=== PATIENT | male | born 1960 | race Caucasian/White ===

== ENCOUNTER 2024-09-17 23:40 | Emergency (ER) | payer MEDICAID, SELFPAY ==
[2024-09-17 23:42] VITALS: BP 137/89; PULSE 99; RESP 20; TEMP 36.8; O2SAT 96; BMI 20.5
[2024-09-18 00:01] VITALS: BP 159/74; PULSE 69; O2SAT 100
--- NOTE | 2024-09-18 00:12 | CT_ITS ---
PROCEDURE INFORMATION: Exam: CT Head Without Contrast Exam date and time: 09/18/2024 12:35 AM Age: 64 years old Clinical indication: Injury or trauma; Fall; Additional info: Fall struck head TECHNIQUE: Imaging protocol: Computed tomography of the head without contrast. Radiation optimization: All CT scans at this facility use at least one of these dose optimization techniques: automated exposure control; mA and/or kV adjustment per patient size (includes targeted exams where dose is matched to clinical indication); or iterative reconstruction. COMPARISON: No relevant prior studies available. FINDINGS: Brain: There is age related atrophy. No hemorrhage. Unremarkable white matter. No mass effect. Cerebral ventricles: No ventriculomegaly. Paranasal sinuses: There is patchy opacification of the sinuses. Mastoid air cells: Visualized mastoid air cells are well aerated. Auditory system: Cerumen is noted within the left external auditory canal. Orbital cavities: The orbital contents are symmetric and normal. Bones: Unremarkable. No acute fracture. Soft tissues: There is a left frontal scalp hematoma with subcutaneous air present consistent with a laceration. There is a right parietal scalp hematoma present. IMPRESSION: 1. No acute intracranial abnormality. 2. Left frontal and right parietal scalp hematomas with a laceration in the left frontal region.
--- NOTE | 2024-09-18 00:12 | PC.NURSE ---
Called [facility] center, speaking with Dr.Daniel Sakina MD at this time.
--- NOTE | 2024-09-18 00:17 | CT_ITS ---
PROCEDURE INFORMATION: Exam: CT Cervical Spine Without Contrast Exam date and time: 09/18/2024 12:37 AM Age: 64 years old Clinical indication: Injury or trauma; Fall; Additional info: Fall ETOH TECHNIQUE: Imaging protocol: Computed tomography of the cervical spine without contrast. Radiation optimization: All CT scans at this facility use at least one of these dose optimization techniques: automated exposure control; mA and/or kV adjustment per patient size (includes targeted exams where dose is matched to clinical indication); or iterative reconstruction. COMPARISON: CT HEAD/BRAIN WO CON 09/18/2024 12:35 AM FINDINGS: Bones: No acute fracture. Normal alignment. There is severe degenerative disc disease at C5-C6 and C6-C7. [id number] degenerative disc disease noted at C2-C3 and C3-C4. Diffuse significant facet arthropathy is noted. No significant disc bulge or herniation. There is a least mild central canal stenosis at C5-C6 and C6-C7 secondary to posterior disc osteophyte formation. Prominent bony foraminal stenosis is noted bilaterally at C4-C5, C5-C6 and C6-C7 and on the right at T1-2 and T2-3. Lungs: Lung apices are normal. Vasculature: There is significant calcific atherosclerotic disease of the carotid bifurcation bilaterally. Soft tissues: Unremarkable. IMPRESSION: 1. No acute cervical spine fracture. 2. Diffuse spondylosis as noted. 3. Significant calcification of the carotid bifurcation bilaterally. Correlation with nonemergent carotid duplex is recommended.
[2024-09-18] MEDS: ONDANSETRON 4MG/2ML VIAL 4 MG IV (00:22)
[2024-09-18] MEDS: LACTATED RINGERS 1000ML 1,000 ML 999 ML IV (00:22)
[2024-09-18 00:31] VITALS: BP 174/154; PULSE 69; O2SAT 97
--- NOTE | 2024-09-18 00:33 | PC.NURSE ---
Rounding done on patient; no needs at this time. Face cleaned up
[2024-09-18 01:01] VITALS: BP 113/52; PULSE 70; O2SAT 78
[2024-09-18 01:30] VITALS: BP 119/56; PULSE 72; O2SAT 96
[2024-09-18 02:00] VITALS: BP 115/59; PULSE 74; O2SAT 98
[2024-09-18 02:14] LABS: Basophils % 0.4 % (0.1-2.0); Eosinophils # 0.1 K/mm3 (0.0-0.4); Eosinophils % 0.9 % (0.1-12.0); Hematocrit 39.4 % (42.0-52.0); Hemoglobin 13.6 g/dL (14.1-18.0); Lymphocytes # 0.9 K/mm3 (0.7-4.5); Mean Corpuscular HGB Conc 34.5 g/dL (31.8-35.4); Mean Corpuscular Hemoglobin 32.5 pg (27.0-31.2); Mean Corpuscular Volume 94.3 fl (80-94); Mean Platelet Volume 9.6 fl (7.4-10.4); Monocytes # 0.5 K/mm3 (0.1-1.0); Monocytes % 5.4 % (1.7-9.3); Neutrophils # 7.4 K/mm3 (1.8-7.8); Platelet Count 244 K/mm3 (142-424); Red Blood Count 4.18 M/mm3 (4.60-6.20); Red Cell Distribution Width 12.1 % (11.5-17.5); White Blood Count 8.9 K/mm3 (4.8-10.8)
[2024-09-18 02:23] LABS: INR 0.91 (0.9-1.1); Prothrombin Time 10.1 seconds (9.2-12.1)
[2024-09-18 02:27] LABS: Alanine Aminotransferase 25 U/L (12-78); Albumin/Globulin Ratio 2.1 (1.1-1.8); Alkaline Phosphatase 94 U/L (38-126); Anion Gap 18.8 mEq/L (5-15); Aspartate Amino Transferase 39 U/L (17-59); Bilirubin,Total 0.5 mg/dl (0.2-1.3); Blood Urea Nitrogen 21 mg/dl (9-20); Calcium 9.1 mg/dl (8.4-10.2); Carbon Dioxide 26 mmol/L (22.0-30.0); Chloride 94 mmol/L (98-107); Creatinine Clearance Estimated 77 mL/min (50-200); Estimated Glomerular Filt Rate 75 ml/min (>60); GFR (African American) 91 ML/MIN (>60); Globulin 2.4 g/dL (1.3-3.2); Glucose 85 mg/dl (74-100); Potassium 4.8 mmoL/L (3.5-5.1); Sodium 134 mmol/L (136-145); Total Protein,Serum 7.4 g/dl (6.3-8.2)
--- NOTE | 2024-09-18 02:28 | PC.NURSE ---
Rounding done, patient states no needs at this time
[2024-09-18 03:38] VITALS: BP 128/72; PULSE 72; RESP 16; TEMP 36.6; O2SAT 98
--- NOTE | 2024-09-18 03:41 | ED_ITS ---
Discharge Plan Disposition Patient Disposition: Home, Self-Care Condition: Good Prescriptions Prescriptions: No Action No Known Home Medications Referrals Follow up/Referrals: Provider,Referral, [Primary Care Provider] - See instructions Activity Restrictions/Add. Instructions Additional Instructions/Restrictions: You were evaluated in the ER and are appropriate for discharge at this time. Continue taking home medications as prescribed. Drink plenty of water, avoid alcohol and other illicit substances. Keep your wounds clean and dry. You can shower/bathe like normal. The glue will come off on its own. You have calcifications in your carotid artery. Talk to your primary care doctor about this and ask them to order a carotid duplex study. Follow-up with your primary care doctor in 1 to 2 days for reevaluation. Return to the ER with new, worsening, or otherwise concerning symptoms. Clinical Impressions Clinical Impression: Alcoholic intoxication, Fall, Abrasion of face Print Language Print Language: Serbian Discharge ED Provider: Michelle Chavarria Adult HPI General Chief complaint: Alcohol Stated complaint: intoxication, Fall Time Seen by Provider: 09/18/24 00:17 Mode of Arrival: EMS Source of Information: Patient and EMS Limitations: No Limitations Description of Symptoms (Recalled from ER Triage Doc. by RN): pt arrives with EMS after the neighbors called for him, he was found lying outside after he fell and hit his face on the pole on the porch. pt is intoxicated and states he drank several bourbons tonight. pt has lacerations to the nose and left side of his face. pt denies any pain at this time. History of Present Illness HPI narrative: 64-year-old male presents to the ER via EMS after a fall. Patient reports he drinks alcohol almost nightly and tonight had several bourbons. He states he usually drinks beer. He tells me he walked outside and tripped, falling and striking his face on a pole on the porch. Reportedly no loss of consciousness. He denies taking any blood thinners. He denies neck pain, chest pain, headache, dizziness, numbness, tingling, weakness, difficulty breathing, abdominal pain, nausea, vomiting, diarrhea, constipation, dysuria, or any other associated symptoms. He states he otherwise feels well. He states he is embarrassed that he drank too much and fell and ended up in the ER. He denies other illicit drug use. Reports his last tetanus shot was 3 to 4 years ago [place]. Patient has been ambulatory since the incident. Related Data Home Medications ?Medication ?Instructions ?Recorded ?Confirmed No Known Home Medications 09/17/24 09/17/24 Allergies Allergy/AdvReac Type Severity Reaction Status Date / Time No Known Allergies Allergy Verified 09/18/24 00:20 [facility] Disclaimer: The information contained in this section may have been updated after the patient was seen, as this information can be updated by other users. Social History Smoking Status: Never smoker alcohol intake: current current occupational status: other Travel in the last 8 weeks: None ROS Obtained: Yes Systems reviewed as appropriate & no additional complaints except as documented Physical Exam General General appearance: alert and in no apparent distress Head Head exam: normocephalic and other (Patient has multiple abrasions on the forehead, nose, also has 0.5 centimeter laceration on the forehead just above the left eyebrow, 1.5 cm laceration on the lower left eyelid is hemostatic, abrasions present on left cheek, no skull deformity or evidence of fracture) Eye Eye exam: Present PERRL and EOMI ENT ENT exam: Present mucous membranes moist and other (TM normal bilaterally, no hemotympanum, no Tobin sign) Neck Neck exam: Present normal inspection and full ROM; Absent tenderness Chest Chest inspection: Present symmetric chest wall rise; Absent tenderness Respiratory Respiratory exam: Present normal lung sounds bilaterally; Absent respiratory distress, wheezes or stridor Cardiovascular Cardiovascular exam: Present regular rate and normal rhythm Abdominal Exam Abdominal exam: Present soft; Absent distention, tenderness, guarding or rebound Extremities Exam Extremities exam: Present full ROM and normal capillary refill; Absent tenderness, edema, joint swelling or calf tenderness Back Exam Back exam: Absent paraspinal tenderness or vertebral tenderness Neurological Exam Neurological exam: Present alert, oriented X3, CN II-XII intact and normal gait; Absent motor sensory deficit Psychiatric Psychiatric exam: Present normal affect and normal mood Skin Skin exam: Present warm and dry Medical Decision Making Medical Records Screening: Per USPSTF and CDC recommendations, given the prevalence of disease in our region, it is our hospital?s policy to screen for HIV and viral Hepatitis for all patients aged 18 and over and those with ongoing risk factors. Nikhil Inquiry Pt receiving controlled substance: No Vital Signs: 09/17/24 23:42 09/18/24 00:01 09/18/24 00:31 Temperature 98.2 F Temperature Source Temporal Artery Scan Pulse Rate 69 69 Pulse Rate [Right] 99 H Respiratory Rate 20 Blood Pressure 159/74 H 174/154 H Blood Pressure [Right Arm] 137/89 Blood Pressure Mean Blood Pressure Mean [Right Arm] 105 Blood Pressure Source Blood Pressure Position 02 Sat by Pulse Oximetry 96 100 97 Oxygen Delivery Method Room Air 09/18/24 01:01 09/18/24 01:30 09/18/24 02:00 Temperature Temperature Source Pulse Rate 70 72 74 Pulse Rate [Right] Respiratory Rate Blood Pressure 113/52 L 119/56 L 115/59 L Blood Pressure [Right Arm] Blood Pressure Mean 90 77 82 Blood Pressure Mean [Right Arm] Blood Pressure Source Blood Pressure Position 02 Sat by Pulse Oximetry 78 L 96 98 Oxygen Delivery Method 09/18/24 03:38 Temperature 97.9 F Temperature Source Oral Pulse Rate 72 Pulse Rate [Right] Respiratory Rate 16 Blood Pressure 128/72 Blood Pressure [Right Arm] Blood Pressure Mean Blood Pressure Mean [Right Arm] Blood Pressure Source Automatic Cuff Blood Pressure Position Supine 02 Sat by Pulse Oximetry Oxygen Delivery Method Room Air Lab Data Lab Results 09/18/24 02:02: WBC 8.9, RBC 4.18 L, Hgb 13.6 L, Hct 39.4 L, MCV 94.3 H, MCH 32.5 H, MCHC 34.5, RDW 12.1, Plt Count 244, MPV 9.6, Neut % (Auto) 83.0 H, Lymph % (Auto) 10.0, [place] % (Auto) 5.4, Eos % (Auto) 0.9, Baso % (Auto) 0.4, Neut # (Auto) 7.4, Lymph # (Auto) 0.9, [place] # (Auto) 0.5, Eos # (Auto) 0.1, Baso # (Auto) 0.0, PT 10.1, INR 0.91, Sodium 134 L, Potassium 4.8, Chloride 94 L, Carbon Dioxide 26, Anion Gap 18.8 H, BUN 21 H, Creatinine 1.00, Estimated Creat Clear 77, Estimated GFR 75, Est GFR ( Amer) 91, Glucose 85, Calcium 9.1, Total Bilirubin 0.5, AST 39, ALT 25, Alkaline Phosphatase 94, Total Protein 7.4, Albumin 5.0, Globulin 2.4, Albumin/Globulin Ratio 2.1 H 09/18/24 02:02 09/18/24 02:02 Orders (Tests/Meds): ED MEDICATIONS Discontinued Medications Generic Name Dose Route Start Last Admin Trade Name Osei PRN Reason Stop Dose Admin Lactated Ringer's 1,000 mls @ 999 mls/hr 09/18/24 00:17 09/18/24 00:22 Lactated Ringer's 1000 Ml Bag IV 09/18/24 01:17 999 mls/hr .Q1H1M ONE Administration Ondansetron HCl 4 mg 09/18/24 00:17 09/18/24 00:22 Ondansetron 4mg/2ml Vial IV 09/18/24 00:18 4 mg ONCE ONE Administration ORDERS Category Date Time Status CT cervical spine wo con Stat Cat Scan 09/18/24 00:[address] head/brain wo con Stat Cat Scan 09/18/24 00:12 Completed CBC w/Auto Diff [Complete Blood Count Auto Diff] Stat Lab 09/18/24 02:02 Completed CMP [Comprehensive Metabolic Panel] Stat Lab 09/18/24 02:02 Completed PT INR [Prothrombin Time INR] Stat Lab 09/18/24 02:02 Completed Medical Decision Narrative: In summary, this 64-year-old male who admits to frequent alcohol use and reports a history of COPD which may not be at goal therapy but does not have shortness of breath today presents to the emergency department today with concerns of injury after falling while intoxicated. On initial evaluation patient is hemodynamically stable, afebrile, GCS 15, no neurologic deficits, the only obvious traumatic injuries on exam are abrasions and small lacerations to the face, neck. Differential diagnosis includes but is not limited to skull fracture, intracranial bleed, laceration, I considered nasal fracture, there is no evidence of septal hematoma, also considered C-spine injury, no evidence of extremity injury though this was considered, considered coagulopathy, electrolyte abnormality, dehydration, among others. Based on these concerns, I ordered serum labs, CT imaging of the head and neck. Patient received IV fluids, Zofran for treatment. Labs personally reviewed demonstrate no leukocytosis, trace anemia with hemoglobin 13.6 is nonactionable, platelets normal, PT/INR normal, CMP with mild prerenal azotemia, otherwise not acutely actionable. Patient is receiving IV fluids CT head personally turbid it does not demonstrate acute intracranial abnormality, no bleed, midline shift, or skull fracture, CT C-spine does not demonstrate acute traumatic injury, see radiology reads for full interpretations. Incidental findings were discussed with the patient and he was recommended to have outpatient follow-up for carotid calcifications. Small facial lacerations were repaired. See procedure note for details. Patient is clinically sober and appropriate for discharge at this time. He is ambulated around the ER, oriented, feels well and vitals are stable. No prescriptions are necessary. He was instructed on wound care. Patient was given instructions on symptomatic management, follow up instructions, and return precautions for the emergency department. Patient indicated understanding and was discharged in stable condition. Procedures Risk/Benefits of Procedure(s) Were Explained: Yes (Verbal consent provided by patient) Laceration Laceration 1: Site: face Side (If applicable): left (Lower eyelid 0.5 cm below the lid margin) Size (cm): 1.5 Description: linear Depth: simple, single layer Pre-repair: wound explored, irrigated extensively and deep structures intact (No subcutaneous tissue involvement) Skin layer closed with: Dermabond Laceration 2: Site: face Side (If applicable): left (Forehead just above eyebrow) Size (cm): 0.5 Description: linear Depth: simple, single layer Pre-repair: irrigated extensively Skin layer closed with: Dermabond Critical Care Critical Care Time Critical Care Time: No
--- NOTE | 2024-09-18 03:41 | PC.NURSE ---
IV removed. Catheter tip intact. Bleeding controlled.
--- NOTE | 2024-09-18 03:45 | PC.NURSE ---
Patient discharged; waiting on a ride.
== END 2024-09-18 04:21 | disposition home or self-care (01) ==
PROVIDERS: Emergency Provider Emergency Medicine
DX: S00.81XA Abrasion of other part of head, initial encounter (principal); F10.929 Alcohol use, unspecified with intoxication, unspecified; W01.198A Fall on same level from slipping, tripping and stumbling with subsequent striking against other object, initial encounter; Y93.89 Activity, other specified; Y92.008 Other place in unspecified non-institutional (private) residence as the place of occurrence of the external cause
CPT/HCPCS: 12011; 70450; 72125; 80053; 85025; 85610; 96361; 96374; 99284; J2405; J7120

== ENCOUNTER 2024-11-13 13:02 | Outpatient (CLI) | payer MEDICAID, SELFPAY ==
--- NOTE | 2024-11-13 13:30 | CT_ITS ---
FINAL REPORT CLINICAL HISTORY: lung cancer screening former smoker 1.5 ppd x 50 years quit x 2 years ago hx of copd exposed to asbestos lung cancer in sister and father ctdi: 2.90 dlp:111.51 COMPARISON: none FINDINGS: CT CHEST LOW DOSE SCREENING HISTORY: Screening exam for lung cancer. DOSE: CTDI vol: 2.90 mGy, DLP: 111.51 mGy*cm TECHNIQUE: Axial CT without IV contrast administration using low dose protocol. This study was performed with techniques to keep radiation doses as low as reasonably achievable, (ALARA). Individualized dose reduction techniques using automated exposure control or adjustment of mA and/or kV according to the patient's size were employed. There is a 3 mm subpleural nodule in the posterior right upper lobe on image 20 of series 3 favored to be benign inflammatory. There is evidence of old calcified granulomatous disease. No pleural or pericardial effusion is seen. No adenopathy or mass lesion is present. IMPRESSION: Tiny subpleural nodule right upper lobe, favor benign. LUNG RADS CATEGORY 2 RECOMMENDATION: 12 month LDCT follow up Reviewed, Interpreted and Dictated by Mey Lockhart MD Transcribed by Elly Salinas Authenticated and [facility]
== END 2024-11-13 23:59 | disposition home or self-care (01) ==
LOC: RAD 13:03
PROVIDERS: PCP Internal Medicine; Visit Provider Internal Medicine
DX: Z87.891 Personal history of nicotine dependence (principal)
CPT/HCPCS: 71271

== ENCOUNTER 2025-05-20 14:55 | Outpatient (CLI) | payer MEDICARE, SELFPAY ==
[2025-05-20] MEDS: ALBUTEROL 0.083% 2.5 MG/3 ML NEB IH (15:28)
== END 2025-05-20 23:59 | disposition home or self-care (01) ==
LOC: RT 14:55
PROVIDERS: PCP Internal Medicine; Visit Provider Internal Medicine Pulmonary Disease
DX: J44.9 Chronic obstructive pulmonary disease, unspecified (principal); R94.2 Abnormal results of pulmonary function studies
CPT/HCPCS: 94060; 94618; 94726; 94729